=== PATIENT | male | born 1950 | race Caucasian/White ===

== ENCOUNTER → 2016-12-30 | Day surgery (SDC) | payer MEDICARE ==
[~2016-12-30] MED LIST: ASPI81 CHEW; CARD1TAB OR; DEXAMETHASONE SOD PHOS 4 MG/ML VIAL ONE; EPINEPHrine HCL (1:1000) 1 MG/ML VIAL ONE; HYDR-3535 PO; LACTATED RINGER'S 1000 ML INJ 1,000 ML ONE; LISI2.5T3 PO; MIDAZOLAM HCL 2 MG/2 ML VIAL ONE; MOXIFLOXACIN 0.5% OPHT SOLN 3 ML BTL ONE; NEXI40CA PO; ONDANSETRON HCL 4 MG/2 ML VIAL IV PUSH ONE; PHENYLEPHRINE HCL 10% OPTH SOLN 5 ML BTL ONE; PROC1TAB8 PO; PROPOFOL 200 MG/20 ML AMP IV ONE; SODIUM CHLORIDE 0.9% INJ 10 ML ONE; TETRACAINE 0.5% OPTH SOLN 4 ML BTL ONE; TOBRAMYCIN/DEXAMETHASONE OPTH OINT 3.5 GM TUBE ONE; TRIAMCINOLONE ACETONIDE 40 MG/ML VIAL ONE; ZOCO40TA PO; ZOFR4TAB3 SL; ceFAZolin INJ 1,000 MG VIAL ONE; prednisoLONE ACETATE 1% OPHT SUSP 5 ML BTL ONE
--- NOTE | 2017-01-05 10:27 | MP ---
cc: ARNIE BELLA MD DATE OF SURGERY: 12/30/2016 PREOPERATIVE DIAGNOSIS: Full thickness macular hole left eye. POSTOPERATIVE DIAGNOSIS: Full thickness macular hole left eye. OPERATIVE PROCEDURE PERFORMED: Pars vitrectomy, macular hole closure, removal of internal limiting membrane, insertion of 18% SF6 gas, left eye. SURGEON: Arnie Bella MD. ANESTHESIA: Dr. Hendrickson/general ESTIMATED BLOOD LOSS: Less than 1 cc. COMPLICATIONS: None. INDICATIONS FOR THE PROCEDURE: This patient developed significant vision loss and was found to have a macular hole of his left eye. The patient elected for surgical correction to decrease the worsening of his vision. DESCRIPTION OF THE PROCEDURE IN DETAIL: Informed consent was obtained. The patient was brought to the operating room and general anesthesia was established. The left eye was prepped and draped in sterile fashion with Betadine in the conjunctival fornix. The vitreous was evacuated and vitreous traction relieved. The ILM was highlighted with ICG and removed with ILM forceps. Scleral depression examination revealed no untreated retinal holes, tears or detachments. Air-fluid exchange was carried out and the macular hole was noted to close. 18% SF6 gas was instilled. Trocars were removed and sclerotomies closed. Subconjunctival injections of Ancef and dexamethasone were given. The eye was patched with Tobramycin ointment. The patient was brought to the recovery room in stable condition. He will continue followup with [facility] for his postoperative care. MD TSERING Geiger/SEYMOUR /5:44 PM /10:28 AM
== END | disposition home or self-care (01) ==
LOC: ESDC 06:00
PROVIDERS: ATTEND Ophthalmology
DX: H35.342 Macular cyst, hole, or pseudohole, left eye (principal)
CPT/HCPCS: 00145; 67042; J0171; J0690; J1100; J2250; J2405; J3010; J7120; J3301